=== PATIENT | male | born 1945 | race African-American/Black ===

== ENCOUNTER 2021-07-09 16:43 | Inpatient (IN) | payer MEDICARE, OTHER ==
[~2021-07-09] VITALS: Ht 157.5 cm; Wt 79.6 kg
[~2021-07-09 16:43] MED LIST: HYDR12.529 PO; LISI-186 PO
[2021-07-09 17:20] LABS: BASOPHILS % 0.3 % (0.0-2.0); EOSINOPHILS % 0.2 % (0.0-5.0); HEMATOCRIT. 50.6 % (42.0-52.0); HEMOGLOBIN. 16.4 g/dL (14.0-18.0); LYMPHOCYTES % 13.7 % (20.0-50.0); MEAN CORPUSCULAR HEMOGLOBIN 30.1 pg (28.0-32.0); MEAN CORPUSCULAR VOLUME 92.7 fL (80.0-94.0); MEAN PLATELET VOLUME 9.9 fl (7.4-10.4); MONOCYTES % 12.7 % (2.0-8.0); NEUTROPHILS % 73.1 % (40.0-76.0); PLATELET 116 x1000/uL (130-400); RED BLOOD CELL COUNT 5.46 mill/uL (4.7-6.1); RED CELL DISTRIBUTION WIDTH 13.6 % (11.6-14.6)
[2021-07-09 17:28] LABS: CHLORIDE 111 mEq/L (98-107)
[2021-07-09] MEDS ORDERED: ACETAMINOPHEN 325MG TABLET PO ONE (18:00)
[2021-07-09] MEDS ORDERED: SODIUM CHLORIDE 0.9% 1,000 ML IV ONE ×2 (18:30→19:45)
[2021-07-09 18:46] LABS: CREATINE KINASE 1948 IU/L (39-308)
[2021-07-09] MEDS ORDERED: ASPIRIN 325MG TABLET PO ONE (19:45)
[2021-07-09] MEDS ORDERED: HEPARIN 60 UNITS/KG BOLUS IV SCH (20:00)
[2021-07-09] MEDS ORDERED: HEPARIN BOLUS PRN aPTT <30 IV (20:00)
[2021-07-09] MEDS ORDERED: HEPARIN 25,000 UNITS in DEXT 5% WATER 250 ML IV SCH (20:00)
[2021-07-09] MEDS ORDERED: HEPARIN BOLUS PRN aPTT 30-44 IV (20:00)
[2021-07-09 20:32] LABS: INR 1.2; PARTIAL THROMBOPLASTIN TIME 28.1 sec (23.4-31.0); PROTHROMBIN TIME 12.6 sec (9.6-11.0)
[2021-07-09] MEDS ORDERED: HEPARIN 25,000 UNITS in DEXT 5% WATER 245 ML IV SCH (21:15)
[2021-07-10] VITALS (8 sets, daily range): BP systolic 143–177; BP diastolic 74–123
[2021-07-10] MEDS: CLONIDINE 0.1MG TABLET PO PRN ×3 (01:39→16:29)
[2021-07-10] MEDS: LORAZEPAM 2MG/ML CPJ IV PRN (09:58)
[2021-07-10] MEDS ORDERED: MORPHINE SULFATE 2 MG/ML CPJ (NOT FOR IM USE) IV PRN (11:15)
[2021-07-10] MEDS ORDERED: NALOXONE HCL 0.4MG/ML VIAL IV PRN (11:30)
[2021-07-10] MEDS: ENOXAPARIN 40MG/0.4ML SYR SUBCUT SCH (13:00)
[2021-07-10 13:06] LABS: HEMATOCRIT. 44.9 % (42.0-52.0); HEMOGLOBIN. 14.3 g/dL (14.0-18.0); MEAN CORPUSCULAR HEMOGLOBIN 30.2 pg (28.0-32.0); MEAN CORPUSCULAR VOLUME 94.8 fL (80.0-94.0); MEAN PLATELET VOLUME 10.4 fl (7.4-10.4); PLATELET 98 x1000/uL (130-400); RED BLOOD CELL COUNT 4.73 mill/uL (4.7-6.1); RED CELL DISTRIBUTION WIDTH 13.7 % (11.6-14.6)
[2021-07-10 13:33] LABS: CHLORIDE 115 mEq/L (98-107)
[2021-07-10 13:34] LABS: PLATELET ESTIMATE DECREASED
[2021-07-10 13:42] LABS: BG BASE EXCESS 4.2 mmol/L (-2.0-2.0); BG CARBOXYHEMOGLOBIN 0.5 % (0.5-1.5); BG DEOXYHEMOGLOBIN 2.6 % (0.0-5.0); BG FRACTION INSPIRED OXYGEN 21; BG HCO3 ACT 27.5 mmol/L (22.0-26.0); BG METHEMOGLOBIN 0.2 % (0.0-1.5); BG OXYGEN SATURATION 97.4 % (92.0-98.5); BG OXYHEMOGLOBIN 96.7 % (94.0-97.0); BG PCO2 37.1 mmHg (35.0-45.0); BG PH 7.488 (7.350-7.450); BG PO2 93.6 mmHg (75.0-100.0); BG SAMPLE SITE RIGHT RADIAL; BG TOTAL HEMOGLOBIN 15.1 g/dL (12.0-18.0); BG VENT MODE ROOM AIR
[2021-07-10 13:43] LABS: CREATINE KINASE 753 IU/L (39-308)
[2021-07-10 14:07] LABS: CLARITY URINE CLEAR (CLEAR); COLOR URINE DARK YELLOW (YELLOW); KETONES URINE TRACE (NEGATIVE); LEUKOCYTE ESTERASE URINE TRACE (NEGATIVE); NITRITE URINE NEGATIVE (NEGATIVE); OCCULT BLOOD URINE NEGATIVE (NEGATIVE); PH URINE 5.5 (4.5-8.0); PROTEIN URINE TRACE (NEGATIVE); SPECIFIC GRAVITY URINE 1.027 (1.005-1.030)
[2021-07-10] MEDS ORDERED: BISACODYL 10MG SUPP PR PRN (14:15)
[2021-07-10] MEDS ORDERED: IPRATROPIUM/ALBUTEROL 0.5-3(2.5)MG/3ML NEB HHN PRN (14:15)
[2021-07-10] MEDS: DEXTROSE 5% WATER 1,000 ML IV SCH ×2 (14:29→23:51)
[2021-07-10] MEDS ORDERED: CEFTRIAXONE 1 G PREMIX 50 ML IV SCH (14:30)
[2021-07-10] MEDS: CEFTRIAXONE 1,000 MG in DEXTROSE 5% WATER 50 ML IV SCH (15:16)
[2021-07-10 21:03] LABS: CREATINE KINASE MB FRACTION 4.8 ng/mL (0.5-3.6)
[2021-07-11] VITALS (12 sets, daily range): BP systolic 145–170; BP diastolic 79–100
[2021-07-11] MEDS: LORAZEPAM 2MG/ML CPJ IV PRN (00:05)
[2021-07-11 08:37] LABS: BASOPHILS % 0.5 % (0.0-2.0); EOSINOPHILS % 1.9 % (0.0-5.0); HEMATOCRIT. 45.5 % (42.0-52.0); HEMOGLOBIN. 14.9 g/dL (14.0-18.0); MEAN CORPUSCULAR HEMOGLOBIN 30.4 pg (28.0-32.0); MEAN CORPUSCULAR VOLUME 92.7 fL (80.0-94.0); MEAN PLATELET VOLUME 10.3 fl (7.4-10.4); MONOCYTES % 14.2 % (2.0-8.0); NEUTROPHILS % 64.4 % (40.0-76.0); PLATELET 91 x1000/uL (130-400); RED BLOOD CELL COUNT 4.91 mill/uL (4.7-6.1); RED CELL DISTRIBUTION WIDTH 13.3 % (11.6-14.6)
[2021-07-11] MEDS: CLONIDINE 0.1MG TABLET PO PRN ×2 (08:43→15:22)
[2021-07-11 08:54] LABS: CHLORIDE 106 mEq/L (98-107)
[2021-07-11] MEDS: ENOXAPARIN 40MG/0.4ML SYR SUBCUT SCH (09:00)
[2021-07-11 09:06] LABS: LDL CHOLESTEROL 94 mg/dL (5-100)
[2021-07-11 09:08] LABS: T4 FREE 1.41 ng/dL (0.76-1.46)
[2021-07-11 09:09] LABS: HDL CHOLESTEROL 43 mg/dL (40-59)
[2021-07-11 09:20] LABS: HEPATITIS B SURFACE ANTIGEN NEGATIVE
[2021-07-11] MEDS: DEXTROSE 5% WATER 1,000 ML IV SCH ×2 (10:13→22:38)
[2021-07-11] MEDS ORDERED: POTASSIUM CHLORIDE 20MEQ TABLET SR PO NR (11:15)
[2021-07-11] MEDS: HYDRALAZINE 20MG/ML VIAL IV PRN (12:02)
[2021-07-11] MEDS ORDERED: ACETAMINOPHEN 650MG SUPP PR PRN (12:15)
[2021-07-11] MEDS ORDERED: ACETAMINOPHEN 325MG TABLET PO PRN (12:15)
[2021-07-11] MEDS: CEFTRIAXONE 1,000 MG in DEXTROSE 5% WATER 50 ML IV SCH (14:46)
[2021-07-11] MEDS: AMLODIPINE 5MG TABLET PO SCH (15:22)
[2021-07-11] MEDS: HYDRALAZINE HCL 50MG TABLET PO SCH ×2 (18:07→23:16)
[2021-07-11 19:15] LABS: VITAMIN B12 SERUM 942 pg/mL (211-911)
[2021-07-12] VITALS (13 sets, daily range): BP systolic 117–179; BP diastolic 67–102
[2021-07-12] MEDS: DEXTROSE 5% WATER 1,000 ML IV SCH ×2 (06:44→17:34)
[2021-07-12] MEDS: HYDRALAZINE HCL 50MG TABLET PO SCH ×3 (06:47→21:15)
[2021-07-12 08:51] LABS: HEMATOCRIT. 43.2 % (42.0-52.0); HEMOGLOBIN. 14.5 g/dL (14.0-18.0); MEAN CORPUSCULAR HEMOGLOBIN 31.1 pg (28.0-32.0); MEAN CORPUSCULAR VOLUME 92.6 fL (80.0-94.0); MEAN PLATELET VOLUME 9.8 fl (7.4-10.4); PLATELET 83 x1000/uL (130-400); RED BLOOD CELL COUNT 4.67 mill/uL (4.7-6.1); RED CELL DISTRIBUTION WIDTH 13.1 % (11.6-14.6)
[2021-07-12] MEDS: AMLODIPINE 5MG TABLET PO SCH (09:13)
[2021-07-12 09:22] LABS: CHLORIDE 105 mEq/L (98-107)
[2021-07-12] MEDS ORDERED: POTASSIUM CHLORIDE 20MEQ TABLET SR PO SCH (12:00)
[2021-07-12] MEDS: CEFTRIAXONE 1,000 MG in DEXTROSE 5% WATER 50 ML IV SCH (15:26)
[2021-07-12 15:47] LABS: PLATELET ESTIMATE DECREASED
[2021-07-13] VITALS (13 sets, daily range): BP systolic 143–209; BP diastolic 68–92
[2021-07-13] MEDS: DEXTROSE 5% WATER 1,000 ML IV SCH ×3 (01:20→22:10)
[2021-07-13] MEDS: HYDRALAZINE 20MG/ML VIAL IV PRN (01:21)
[2021-07-13] MEDS: HYDRALAZINE HCL 50MG TABLET PO SCH ×3 (05:24→22:10)
[2021-07-13 07:21] LABS: HEMATOCRIT. 43.9 % (42.0-52.0); HEMOGLOBIN. 14.8 g/dL (14.0-18.0); MEAN CORPUSCULAR HEMOGLOBIN 30.9 pg (28.0-32.0); MEAN CORPUSCULAR VOLUME 91.7 fL (80.0-94.0); MEAN PLATELET VOLUME 10.5 fl (7.4-10.4); PLATELET 96 x1000/uL (130-400); RED BLOOD CELL COUNT 4.79 mill/uL (4.7-6.1); RED CELL DISTRIBUTION WIDTH 13.4 % (11.6-14.6)
[2021-07-13 07:49] LABS: CHLORIDE 108 mEq/L (98-107)
[2021-07-13] MEDS: AMLODIPINE 5MG TABLET PO SCH (09:04)
[2021-07-13] MEDS: CLONIDINE 0.1MG TABLET PO PRN (10:48)
[2021-07-13 13:42] LABS: PLATELET ESTIMATE DECREASED
[2021-07-13] MEDS: CEFTRIAXONE 1,000 MG in DEXTROSE 5% WATER 50 ML IV SCH (14:04)
[2021-07-14] VITALS (11 sets, daily range): BP systolic 130–163; BP diastolic 70–97
[2021-07-14] MEDS: HYDRALAZINE HCL 50MG TABLET PO SCH ×3 (06:15→21:39)
[2021-07-14 07:02] LABS: HEMATOCRIT. 41.9 % (42.0-52.0); MEAN CORPUSCULAR HEMOGLOBIN 30.7 pg (28.0-32.0); MEAN PLATELET VOLUME 10.1 fl (7.4-10.4); PLATELET 100 x1000/uL (130-400); RED BLOOD CELL COUNT 4.56 mill/uL (4.7-6.1); RED CELL DISTRIBUTION WIDTH 13.3 % (11.6-14.6)
[2021-07-14 07:37] LABS: CHLORIDE 106 mEq/L (98-107)
[2021-07-14] MEDS: AMLODIPINE 5MG TABLET PO SCH (08:19)
[2021-07-14] MEDS: CEFTRIAXONE 1,000 MG in DEXTROSE 5% WATER 50 ML IV SCH (13:34)
[2021-07-14 14:34] LABS: PLATELET ESTIMATE DECREASED
[2021-07-14] MEDS: FAMOTIDINE 20MG TABLET PO SCH (21:39)
[2021-07-15] VITALS (12 sets, daily range): BP systolic 145–175; BP diastolic 50–98
[2021-07-15] MEDS: HYDRALAZINE HCL 50MG TABLET PO SCH ×3 (05:53→21:05)
[2021-07-15 07:40] LABS: CHLORIDE 106 mEq/L (98-107)
[2021-07-15 07:42] LABS: HEMATOCRIT. 41.5 % (42.0-52.0); MEAN CORPUSCULAR HEMOGLOBIN 31.1 pg (28.0-32.0); MEAN CORPUSCULAR VOLUME 91.9 fL (80.0-94.0); MEAN PLATELET VOLUME 10.5 fl (7.4-10.4); PLATELET 118 x1000/uL (130-400); RED BLOOD CELL COUNT 4.51 mill/uL (4.7-6.1); RED CELL DISTRIBUTION WIDTH 13.5 % (11.6-14.6)
[2021-07-15] MEDS: AMLODIPINE 5MG TABLET PO SCH (09:15)
[2021-07-15 20:06] LABS: PLATELET ESTIMATE DECREASED
[2021-07-15] MEDS: FAMOTIDINE 20MG TABLET PO SCH (21:05)
[2021-07-15] MEDS ORDERED: HYDRALAZINE 10 MG in SODIUM CHLORIDE 0.9% 49.5 ML IV PRN (22:45)
[2021-07-16] VITALS (7 sets, daily range): BP systolic 128–179; BP diastolic 78–95
[2021-07-16] MEDS: CLONIDINE 0.1MG TABLET PO PRN (04:47)
[2021-07-16] MEDS: HYDRALAZINE HCL 50MG TABLET PO SCH ×3 (06:00→20:38)
[2021-07-16 09:01] LABS: HEMATOCRIT. 41.6 % (42.0-52.0); MEAN CORPUSCULAR HEMOGLOBIN 30.8 pg (28.0-32.0); MEAN CORPUSCULAR VOLUME 91.6 fL (80.0-94.0); MEAN PLATELET VOLUME 10.1 fl (7.4-10.4); PLATELET 128 x1000/uL (130-400); RED BLOOD CELL COUNT 4.54 mill/uL (4.7-6.1); RED CELL DISTRIBUTION WIDTH 13.4 % (11.6-14.6)
[2021-07-16 09:14] LABS: CHLORIDE 106 mEq/L (98-107)
[2021-07-16] MEDS: AMLODIPINE 5MG TABLET PO SCH (09:48)
[2021-07-16 18:28] LABS: PLATELET ESTIMATE SLIGHTLY DECREASED
[2021-07-16] MEDS: FAMOTIDINE 20MG TABLET PO SCH (20:37)
[2021-07-17] VITALS (7 sets, daily range): BP systolic 127–154; BP diastolic 63–83
[2021-07-17] MEDS: HYDRALAZINE HCL 50MG TABLET PO SCH ×3 (06:00→21:16)
[2021-07-17 07:39] LABS: BASOPHILS % 0.5 % (0.0-2.0); EOSINOPHILS % 2.2 % (0.0-5.0); HEMATOCRIT. 41.2 % (42.0-52.0); HEMOGLOBIN. 13.3 g/dL (14.0-18.0); LYMPHOCYTES % 21.8 % (20.0-50.0); MEAN CORPUSCULAR HEMOGLOBIN 29.6 pg (28.0-32.0); MEAN CORPUSCULAR VOLUME 91.3 fL (80.0-94.0); MEAN PLATELET VOLUME 10.2 fl (7.4-10.4); MONOCYTES % 13.8 % (2.0-8.0); NEUTROPHILS % 61.7 % (40.0-76.0); PLATELET 136 x1000/uL (130-400); RED BLOOD CELL COUNT 4.51 mill/uL (4.7-6.1); RED CELL DISTRIBUTION WIDTH 13.2 % (11.6-14.6)
[2021-07-17 08:41] LABS: CHLORIDE 105 mEq/L (98-107)
[2021-07-17] MEDS: AMLODIPINE 5MG TABLET PO SCH (09:31)
[2021-07-17] MEDS: FAMOTIDINE 20MG TABLET PO SCH (21:16)
[2021-07-18] VITALS: BP 159/74
[2021-07-18 04:00] VITALS: BP 120/48
[2021-07-18] MEDS: HYDRALAZINE HCL 50MG TABLET PO SCH ×3 (05:17→20:52)
[2021-07-18 07:47] LABS: CHLORIDE 108 mEq/L (98-107)
[2021-07-18 07:50] LABS: BASOPHILS % 0.6 % (0.0-2.0); EOSINOPHILS % 2.1 % (0.0-5.0); HEMATOCRIT. 41.7 % (42.0-52.0); HEMOGLOBIN. 13.8 g/dL (14.0-18.0); LYMPHOCYTES % 22.3 % (20.0-50.0); MEAN CORPUSCULAR HEMOGLOBIN 30.4 pg (28.0-32.0); MEAN CORPUSCULAR VOLUME 91.5 fL (80.0-94.0); MEAN PLATELET VOLUME 10.1 fl (7.4-10.4); MONOCYTES % 12.3 % (2.0-8.0); NEUTROPHILS % 62.7 % (40.0-76.0); PLATELET 148 x1000/uL (130-400); RED BLOOD CELL COUNT 4.56 mill/uL (4.7-6.1); RED CELL DISTRIBUTION WIDTH 13.7 % (11.6-14.6)
[2021-07-18 08:00] VITALS: BP 111/70
[2021-07-18] MEDS: AMLODIPINE 5MG TABLET PO SCH (09:46)
[2021-07-18 12:00] VITALS: BP 122/48
[2021-07-18 16:00] VITALS: BP 135/52
[2021-07-18 20:00] VITALS: BP 178/67
[2021-07-18] MEDS: FAMOTIDINE 20MG TABLET PO SCH (20:52)
[2021-07-19] VITALS: BP 145/67
[2021-07-19 04:00] VITALS: BP 128/61
[2021-07-19] MEDS: HYDRALAZINE HCL 50MG TABLET PO SCH ×3 (05:18→22:01)
[2021-07-19 08:00] VITALS: BP 178/89
[2021-07-19] MEDS: AMLODIPINE 5MG TABLET PO SCH (09:21)
[2021-07-19] MEDS: CLONIDINE 0.1MG TABLET PO PRN (10:10)
[2021-07-19 12:00] VITALS: BP 156/83
[2021-07-19 16:00] VITALS: BP 119/71
[2021-07-19 20:00] VITALS: BP 137/67
[2021-07-19] MEDS: FAMOTIDINE 20MG TABLET PO SCH (22:01)
[2021-07-20] VITALS: BP 153/82
[2021-07-20 04:00] VITALS: BP 130/64
[2021-07-20] MEDS: HYDRALAZINE HCL 50MG TABLET PO SCH ×3 (05:30→21:13)
[2021-07-20 08:00] VITALS: BP 142/77
[2021-07-20] MEDS: ENOXAPARIN 40MG/0.4ML SYR SUBCUT SCH (10:06)
[2021-07-20] MEDS: AMLODIPINE 5MG TABLET PO SCH (10:07)
[2021-07-20 12:00] VITALS: BP 141/72
[2021-07-20 16:00] VITALS: BP 144/89
[2021-07-20] MEDS ORDERED: LORAZEPAM 2MG/ML CPJ IV PRN (16:00)
[2021-07-20] MEDS ORDERED: HYDROCODONE/ACETAMINOPHEN 5/325MG TABLET PO PRN (16:00)
[2021-07-20] MEDS ORDERED: NALOXONE HCL 0.4MG/ML VIAL IV PRN (16:00)
[2021-07-20 20:00] VITALS: BP 152/68
[2021-07-20 20:44] LABS: BASOPHILS % 0.7 % (0.0-2.0); EOSINOPHILS % 2.4 % (0.0-5.0); HEMATOCRIT. 43.2 % (42.0-52.0); HEMOGLOBIN. 14.2 g/dL (14.0-18.0); MEAN CORPUSCULAR HEMOGLOBIN 30.4 pg (28.0-32.0); MEAN CORPUSCULAR VOLUME 92.5 fL (80.0-94.0); MEAN PLATELET VOLUME 9.7 fl (7.4-10.4); MONOCYTES % 9.3 % (2.0-8.0); NEUTROPHILS % 56.6 % (40.0-76.0); PLATELET 150 x1000/uL (130-400); RED BLOOD CELL COUNT 4.68 mill/uL (4.7-6.1); RED CELL DISTRIBUTION WIDTH 13.5 % (11.6-14.6)
[2021-07-20 20:56] LABS: CHLORIDE 109 mEq/L (98-107)
[2021-07-20] MEDS: FAMOTIDINE 20MG TABLET PO SCH (21:13)
[2021-07-21] VITALS: BP 138/67
[2021-07-21 04:00] VITALS: BP 139/79
[2021-07-21] MEDS: HYDRALAZINE HCL 50MG TABLET PO SCH ×3 (05:40→21:10)
[2021-07-21 08:00] VITALS: BP 116/71
[2021-07-21] MEDS: AMLODIPINE 5MG TABLET PO SCH (09:21)
[2021-07-21] MEDS: ENOXAPARIN 40MG/0.4ML SYR SUBCUT SCH (09:24)
[2021-07-21 12:00] VITALS: BP 132/72
[2021-07-21 16:00] VITALS: BP 140/76
[2021-07-21 20:00] VITALS: BP 153/79
[2021-07-21] MEDS: FAMOTIDINE 20MG TABLET PO SCH (21:09)
[2021-07-22] VITALS: BP 162/85
[2021-07-22 04:00] VITALS: BP 175/84
[2021-07-22] MEDS: CLONIDINE 0.1MG TABLET PO PRN (05:21)
[2021-07-22] MEDS: HYDRALAZINE HCL 50MG TABLET PO SCH ×3 (05:21→22:09)
[2021-07-22] MEDS: AMLODIPINE 5MG TABLET PO SCH (09:24)
[2021-07-22] MEDS: ENOXAPARIN 40MG/0.4ML SYR SUBCUT SCH (09:25)
[2021-07-22 20:00] VITALS: BP 140/71
[2021-07-22] MEDS: FAMOTIDINE 20MG TABLET PO SCH (22:09)
[2021-07-23] VITALS: BP 148/80
[2021-07-23 04:00] VITALS: BP 170/80
[2021-07-23] MEDS: HYDRALAZINE HCL 50MG TABLET PO SCH ×3 (05:54→22:05)
[2021-07-23] MEDS: CLONIDINE 0.1MG TABLET PO PRN (05:54)
[2021-07-23 08:00] VITALS: BP 132/69
[2021-07-23] MEDS: ENOXAPARIN 40MG/0.4ML SYR SUBCUT SCH (10:17)
[2021-07-23] MEDS: AMLODIPINE 5MG TABLET PO SCH (10:20)
[2021-07-23 12:00] VITALS: BP 129/68
[2021-07-23 16:00] VITALS: BP 130/71
[2021-07-23 20:00] VITALS: BP 155/85
[2021-07-23] MEDS: FAMOTIDINE 20MG TABLET PO SCH (22:04)
[2021-07-24] VITALS: BP 152/86
[2021-07-24 04:00] VITALS: BP 154/82
[2021-07-24] MEDS: HYDRALAZINE HCL 50MG TABLET PO SCH ×3 (05:28→21:37)
[2021-07-24 08:00] VITALS: BP 152/79
[2021-07-24] MEDS: ENOXAPARIN 40MG/0.4ML SYR SUBCUT SCH (09:09)
[2021-07-24] MEDS: AMLODIPINE 5MG TABLET PO SCH (11:32)
[2021-07-24] MEDS: ASPIRIN 81MG TABLET PO SCH (11:56)
[2021-07-24 12:00] VITALS: BP 157/68
[2021-07-24] MEDS ORDERED: NITROGLYCERIN OINT 1GM/INCH UDPKT TD NR (12:00)
[2021-07-24 16:00] VITALS: BP 145/82
[2021-07-24 19:43] LABS: BASOPHILS % 0.6 % (0.0-2.0); EOSINOPHILS % 2.2 % (0.0-5.0); HEMATOCRIT. 40.6 % (42.0-52.0); HEMOGLOBIN. 13.7 g/dL (14.0-18.0); LYMPHOCYTES % 30.3 % (20.0-50.0); MEAN CORPUSCULAR HEMOGLOBIN 30.6 pg (28.0-32.0); MEAN CORPUSCULAR VOLUME 90.9 fL (80.0-94.0); MEAN PLATELET VOLUME 9.7 fl (7.4-10.4); NEUTROPHILS % 54.9 % (40.0-76.0); PLATELET 159 x1000/uL (130-400); RED BLOOD CELL COUNT 4.47 mill/uL (4.7-6.1); RED CELL DISTRIBUTION WIDTH 13.2 % (11.6-14.6)
[2021-07-24 19:50] LABS: CHLORIDE 109 mEq/L (98-107)
[2021-07-24 20:00] VITALS: BP 166/89
[2021-07-24] MEDS: FAMOTIDINE 20MG TABLET PO SCH (21:37)
[2021-07-25] VITALS: BP 153/90
[2021-07-25 04:00] VITALS: BP 151/73
[2021-07-25] MEDS: HYDRALAZINE HCL 50MG TABLET PO SCH ×2 (06:00→13:16)
[2021-07-25 08:00] VITALS: BP 144/75
[2021-07-25] MEDS: ASPIRIN 81MG TABLET PO SCH (09:47)
[2021-07-25] MEDS: AMLODIPINE 5MG TABLET PO SCH (09:48)
[2021-07-25] MEDS: ENOXAPARIN 40MG/0.4ML SYR SUBCUT SCH (09:49)
[2021-07-25 10:51] VITALS: BP 144/75
[2021-07-25 12:00] VITALS: BP 149/74
== END 2021-07-25 17:17 | DRG 557 ==
LOC: ER 16:43 → MICUSO 23:58 → 3WST 07-10 11:11 → 6EST 07-15 22:15
PROVIDERS: ADMIT Internal Medicine; ATTEND Internal Medicine
PROC: 4A10X4Z Monitoring of Central Nervous Electrical Activity, External Approach (ICD-10-PCS; principal; 2021-07-16)
DX: M62.82 Rhabdomyolysis (principal); I21.4 Non-ST elevation (NSTEMI) myocardial infarction; N17.9 Acute kidney failure, unspecified; G93.40 Encephalopathy, unspecified; I10 Essential (primary) hypertension; Z96.659 Presence of unspecified artificial knee joint; Z96.642 Presence of left artificial hip joint; E80.6 Other disorders of bilirubin metabolism; R26.89 Other abnormalities of gait and mobility; I68.0 Cerebral amyloid angiopathy; F20.9 Schizophrenia, unspecified; M25.78 Osteophyte, vertebrae; M47.812 Spondylosis without myelopathy or radiculopathy, cervical region; Z20.822 Contact with and (suspected) exposure to COVID-19; M48.02 Spinal stenosis, cervical region; M48.061 Spinal stenosis, lumbar region without neurogenic claudication; Z79.899 Other long term (current) drug therapy; W18.30XA Fall on same level, unspecified, initial encounter
CPT/HCPCS: 36415; 36600; 70551; 71045; 72141; 72148; 72170; 73552; 76705; 80048; 80053; 80061; 81003; 82140; 82375; 82550; 82553; 82607; 82805; 83880; 84439; 84443; 84484; 85025; 86705; 86709; 86803; 87340; 87426; 93005; 93306; 93880; 93970; 95816; 97116; 97162; 97530; 99291; J0360; J0696; J1644; J1650; J2060; J2270; J7060; J7070